=== PATIENT | male | born 1990 | race African-American/Black ===

== ENCOUNTER 2019-04-24 21:21 | Emergency (ER) | payer SELFPAY ==
[~2019-04-24] VITALS: Ht 175.3 cm; Wt 90.9 kg
[2019-04-24] MEDS ORDERED: LITH600 PO (21:45)
[2019-04-24] MEDS ORDERED: HALO5TAB2 PO (21:45)
[2019-04-24] MEDS ORDERED: BENZ1TAB10 PO (21:45)
[2019-04-24 23:00] VITALS: BP 127/74
[2019-04-24] MEDS ORDERED: ChlordiazePOXIDE HCL 25 MG CAPSULE PO ONE (23:15)
== END 2019-04-24 23:30 | disposition home or self-care (01) ==
LOC: EMS 21:23
DX: F10.239 Alcohol dependence with withdrawal, unspecified (principal); F20.9 Schizophrenia, unspecified